=== PATIENT | male | born 1980 | race African-American/Black ===

== ENCOUNTER 2016-10-02 20:51 | Emergency (ER) | payer OTHER ==
[~2016-10-02] VITALS: Ht 182.9 cm; Wt 86.7 kg
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
--- OUTSIDE RECORDS SUMMARY | 2016-10-02 20:55 | XMS REPORT | Referral Summary ---
Author Author [facility] Organization [facility] Address Unknown Phone Unavailable Care Team Providers Care Upholsterer Helper Name Role Phone No PCP, Pt States Primary Care Physician [phone] Encounter VC Date(s): 05/26/15 - 05/26/15 [facility] [address] [place], [place] [address] Discharge Diagnosis: Anxiety Discharge Diagnosis: Medical non-compliance Discharge Disposition: 01-Home or Self Care Attending Physician: Neil Hutchins JR, MD Admitting Physician: Neil Hutchins JR, MD Vital Signs Most recent to 1 oldest [Reference Range]: Temperature Oral 36.6 degC [35.8-37.3 degC] (05/26/15 5:30 PM) Peripheral Pulse 73 bpm Rate [60-100 bpm] (05/26/15 5:30 PM) Respiratory Rate 16 br/min [14-20 br/min] (05/26/15 5:30 PM) Blood Pressure 107/71 mmHg [90-140/60-90 mmHg] (05/26/15 5:30 PM) SpO2 98 % (05/26/15 5:30 PM) Problem List Condition Effective Dates Status Health Status Informant Acute Active pain(Confirmed) Kidney failure, Active patient acute(Confirmed) At risk for Active injury(Confirmed)1 At risk of pressure Active sore(Confirmed) Manic Active patient depression(Confirmed ) Depression(Confirmed Active ) Knowledge Active deficit(Confirmed)2 Tissue perfusion Active alteration(Confirmed )3 Tobacco Active patient user(Confirmed) 1Problem added automatically by system based on initiation of Risk for Injury Plan of Care 2Problem added automatically by system based on initiation of Knowledge Deficit Plan of Care 3Problem added automatically by system based on initiation of Tissue Perfusion Cerebral Plan of Care Allergies, Adverse Reactions, Alerts Substance Reaction Severity Status acetaminophen1 Hives Medium Active 1facial redness, hives Medications Ativan 0 Refill(s) Start Date: 05/25/15 Status: Ordered LaMICtal 25 mg, Oral, Bedtime (once a day), 0 Refill(s) Start Date: 01/10/14 Status: Ordered lisinopril Oral, Daily, 0 Refill(s) Start Date: 07/27/14 Status: Ordered Remeron 7.5 mg, Oral, Bedtime (once a day), 0 Refill(s) Start Date: 01/10/14 Status: Ordered Results No data available for this section Immunizations Vaccine Date Refusal Reason pneumococcal 23-polyvalent vaccine 01/12/14 Procedures No data available for this section Social History Social History Type Response Smoking Status Current every day smoker; Type: E-Cigarette; Tobacco use per day: Pack Assessment and Plan No data available for this section
--- OUTSIDE RECORDS SUMMARY | 2016-10-02 20:55 | XMS REPORT | Continuity Of Care Document ---
Author [facility] Address [address] [place] [address] Phone Care Team Providers Care Computer Language Coder Name Role Phone UNASSIGNED, PHYSICIAN Unavailable Unavailable SAVAGE JACINTO, ADELAIDE AT Results Results No results recorded. Allergies and Adverse Reactions Allergies and Adverse Reactions Patient Unit Number: [id number] Agent Type Reaction Severity Status ACETAMINOPHEN Drug Allergy Unknown Unknown Active Problem List Problem List Visit/Account #[id number] (August 23, 2016 6:02pm - August 23, 2016 7: 10pm) Acute Problems: Code/Condition Comments Documented Start Date Documented Resolved Date Code (s) Low back pain ICD10: M54.5 Low back pain ICD9: 724.2 Low back pain SNOMED: 886296596 Low back pain Bronchitis ICD10: J40 Bronchitis ICD9: 490 Bronchitis SNOMED: 94807905 Bronchitis Anxiety ICD10: F41.9 Anxiety ICD9: 300.00 Anxiety SNOMED: 05142278 Anxiety High blood pressure ICD10: I10 Hypertension ICD9: 401.9 Hypertension SNOMED: 45638772 Hypertension Plan of Care Plan Of Care Visit/Account #[id number] (August 23, 2016 6:02pm - August 23, 2016 7: 10pm) Patient Instructions Return if worse or any concern. Establish primary care with Dr. Charles within the next 1 to 2 weeks for follow-up. Vital Signs Vital Signs Visit/Account #[id number] (August 23, 2016 6:02pm - August 23, 2016 7: 10pm) Sign First Result Last Result Code(s) Body Mass Index Body Mass Index (BMI): 27.0 kg/m2 On August 23, 2016 6:03pm 28226-3 BMI (body mass index) Body Mass Index as a Calculated Value 27.3 kg/m2 On August 23, 2016 6:03pm 93666-1 BMI (body mass index) Body Surface Area as a Calculated Value 2.14 m2 On August 23, 2016 6:03pm 3140-1 BSA (body surface area) Height (Feet/Inches) 6 [ft_us] On August 23, 2016 6:03pm Temperature in Fahrenheit Temperature (Fahrenheit): 98.1 [degF] On August 23, 2016 6:03pm Temperature (Fahrenheit): 98.8 [degF] On August 23, 2016 7:12pm 8310-5 Body Temperature Weight in Kilograms Weight (Kilograms): 91.36 kg On August 23, 2016 6:03pm 3141-9 Weight Measured 94402-2 Body weight measured in kilograms Functional Status Functional and Cognitive Status No Functional Status Data Medications Inpatient/Ordered Medications - Medications administered during hospital visit Visit/Account #[id number] (August 23, 2016 6:02pm - August 23, 2016 7: 10pm) Medication Route Sig/Schedule Precondition/Indication Comments/Instructions Codes HALDOL(HALOPERIDOL) 5 MG TAB Dose: 5 MG ORAL NOW Label Comments: MAY INCREASE FALL RISK Haloperidol 5 MG Oral Tablet (RxNorm): 637719 HALDOL (HALOPERIDOL) NDC: 50008260112 TORADOL(KETOROLAC TROMETHAMINE) 10 MG TAB Dose: 20 MG ORAL NOW Label Comments: TAKE WITH FOOD OR MILK. DO NOT EXCEED 5 DAYS OF THERAPY Ketorolac Tromethamine 10 MG Oral Tablet (RxNorm): 590303 TORADOL (KETOROLAC TROMETHAMINE) NDC: 47131645226 History Of Encounters Encounters Visit/Account #[id number] (August 23, 2016 6:02pm - August 23, 2016 7: 10pm) Account Status Physican Of Record Reason For Visit Visit Diagnosis Start Date/Time Stop Date/Time IRVING WAN MD ANXIETY Not Available Aug 23, 2016 6:02pm Aug 23, 2016 7:10pm History of Procedures Procedure List No procedures recorded. Discharge Instructions Discharge Instructions Visit/Account #[id number] (August 23, 2016 6:02pm - August 23, 2016 7: 10pm) DISCHARGE INSTRUCTIONS Physician Documentation Social History Social History No Social History Data. Immunizations Immunizations Patient Unit Number: [id number] Immunizations No immunizations recorded.
--- OUTSIDE RECORDS SUMMARY | 2016-10-02 20:55 | XMS REPORT | Continuity Of Care Document ---
Author Author [facility] Organization [facility] Address [address] [place] [address] Phone Care Team Providers Care Plant Buyer Name Role Phone UNASSIGNED, PHYSICIAN Unavailable Unavailable Laura NANCE DO AT Results Results No results recorded. Allergies and Adverse Reactions Allergies and Adverse Reactions Patient Unit Number: [id number] Agent Type Reaction Severity Status ACETAMINOPHEN Drug Allergy Unknown Unknown Active Problem List Problem List Visit/Account #[id number] (August 22, 2016 8:06am - August 22, 2016 10: 14am) Acute Problems: Code/Condition Comments Documented Start Date Documented Resolved Date Code (s) Medication side effects ICD10: T88.7XXA Adverse effect of drug ICD9: 995.20 Adverse effect of drug SNOMED: 85379219 Adverse effect of drug Anxiety attack ICD10: F41.0 Anxiety attack ICD9: 300.01 Anxiety attack SNOMED: 364078257 Anxiety attack Plan of Care Plan Of Care Visit/Account #[id number] (August 22, 2016 8:06am - August 22, 2016 10: 14am) Patient Instructions Continue previous medications as prescribed, return to the emergency department for any concerns. Vital Signs Vital Signs Visit/Account #[id number] (August 22, 2016 8:06am - August 22, 2016 10: 14am) Sign First Result Last Result Code(s) Body Mass Index Body Mass Index (BMI): 26.0 kg/m2 On August 22, 2016 8:05am 33135-7 BMI (body mass index) Body Mass Index as a Calculated Value 26.8 kg/m2 On August 22, 2016 8:05am 88956-5 BMI (body mass index) Body Surface Area as a Calculated Value 2.17 m2 On August 22, 2016 8:05am 3140-1 BSA (body surface area) Height (Feet/Inches) 6 [ft_us] 1 [in_us] On August 22, 2016 8:05am Temperature in Fahrenheit Temperature (Fahrenheit): 97.7 [degF] On August 22, 2016 8:05am Temperature (Fahrenheit): 97.8 [degF] On August 22, 2016 9:57am 8310-5 Body Temperature Weight in Kilograms Weight (Kilograms): 92.27 kg On August 22, 2016 8:05am 3141-9 Weight Measured 87484-3 Body weight measured in kilograms Functional Status Functional and Cognitive Status No Functional Status Data Medications Inpatient/Ordered Medications - Medications administered during hospital visit Visit/Account #[id number] (August 22, 2016 8:06am - August 22, 2016 10: 14am) Medication Route Sig/Schedule Precondition/Indication Comments/Instructions Codes IV Medication Carriers: NORMAL SALINE(SODIUM CHLORIDE) 1000 ML INJECTION Dose: 1000 ML INTRAVEN .Q1H (Rate: 1000 MLS/HR Duration: 1 HR) Carriers: 1000 ML Sodium Chloride 9 MG/ML Injection (RxNorm): 0577598 NORMAL SALINE (SODIUM CHLORIDE) NDC: 70417124547 VALIUM INJ(DiazePAM) 10 MG/2 ML INJECTION Dose: 1 ML INTRAVEN ONE TIME ORDER Label Comments: MAY INCREASE FALL RISK 2 ML Diazepam 5 MG/ML Cartridge (RxNorm): 5635658 VALIUM INJ (DiazePAM) NDC: 53044743407 History Of Encounters Encounters Visit/Account #[id number] (August 22, 2016 8:06am - August 22, 2016 10: 14am) Account Status Physican Of Record Reason For Visit Visit Diagnosis Start Date/Time Stop Date/Time IRVING NANCE DO LIGHT HEADED R42: DIZZINESS AND GIDDINESS ICD10 Aug 22, 2016 8:06am Aug 22, 2016 10:14am History of Procedures Procedure List No procedures recorded. Discharge Instructions Discharge Instructions Visit/Account #[id number] (August 22, 2016 8:06am - August 22, 2016 10: 14am) DISCHARGE INSTRUCTIONS Physician Documentation Social History Social History No Social History Data. Immunizations Immunizations Patient Unit Number: [id number] Immunizations No immunizations recorded.
--- OUTSIDE RECORDS SUMMARY | 2016-10-02 20:56 | XMS REPORT | Referral Summary ---
Author Organization Unknown Address Unknown Phone Unavailable Care Team Providers Care Federal Air Marshal Name Role Phone No PCP, [facility] Primary Care Physician [phone] Encounter VC Date(s): 07/25/14 - 07/25/14 [facility] [address] [place] [address] Discharge Diagnosis: Paranoia Discharge Diagnosis: Drug abuse Discharge Disposition: Inpatient Rehab Facility Attending Physician: Sunday Kahn MD Admitting Physician: Sunday Kahn MD Vital Signs Most recent to 1 oldest [Reference Range]: Temperature Oral 36.3 degC [35.8-37.3 degC] (07/25/14 9:16 PM) Peripheral Pulse 111 bpm Rate [60-100 bpm] *HI* (07/25/14 9:16 PM) Heart Rate Monitored 107 bpm [60-100 bpm] *HI* (07/25/14 11:25 PM) Respiratory Rate 16 br/min [14-20 br/min] (07/25/14 11:25 PM) Blood Pressure 178/106 mmHg [90-140/60-90 mmHg] *HI* (07/25/14 11:25 PM) Most recent to 1 oldest [Reference Range]: SpO2 96 % (07/25/14 11:25 PM) Problem List Condition Effective Dates Status [...] Reactions, Alerts Substance Reaction Severity Status acetaminophen1 Active 1facial redness, hives Medications LaMICtal 25 mg, Oral, Bedtime (once a day), 0 Refill(s) Start Date: 01/10/14 Status: Ordered Remeron 7.5 mg, Oral, Bedtime (once a day), 0 Refill(s) Start Date: 01/10/14 Status: Ordered Results Chemistry Most recent to 1 oldest [Reference Range]: Sodium Venous 140 mEq/L [136-144 mEq/L] (07/25/14 10:10 PM) Potassium Venous 3.2 mEq/L 1 [3.6-5.1 mEq/L] *LOW* (07/25/14 10:10 PM) Calcium Ionized 1.15 mmol/L Venous [1.19-1.41 *LOW* mmol/L] (07/25/14 10:10 PM) Total CO2 Venous 24 mEq/L [25-29 mEq/L] *LOW* (07/25/14 10:10 PM) HGB Venous NPT 16.7 gm/dL [14.0-18.0 gm/dL] (07/25/14 10:10 PM) HCT Venous 49.0 % [42.0-52.0 %] (07/25/14 10:10 PM) Glucose Venous 104 mg/dL [70-100 mg/dL] *HI* (07/25/14 10:10 PM) BUN Venous [4-20] 10 (07/25/14 10:10 PM) Creatinine Venous 1.1 mg/dL [0.7-1.2 mg/dL] (07/25/14 10:10 PM) Venous CL [99-109 101 mEq/L mEq/L] (07/25/14 10:10 PM) Anion Gap, [place] 15 [3-20] (07/25/14 10:10 PM) 1Result Comment: This test was performed on a whole blood specimen. The presence or absence of hemolysis cannot be assessed. Hemolysis can falsely elevate potassium levels. Normals are for venous specimens only. Immunizations Vaccine Date Refusal Reason pneumococcal 23-polyvalent vaccine 01/12/14 Procedures No data available for this section Social History Social History Type Response Smoking Status Current every day smoker; Type: Cigarettes; Tobacco use per day: Pack Assessment and Plan No data available for this section
--- OUTSIDE RECORDS SUMMARY | 2016-10-02 20:56 | XMS REPORT | Referral Summary ---
Author Organization Unknown Address Unknown Phone Unavailable Care Team Providers Care Donkey Engine Firer/Fireman Name Role Phone No PCP, [facility] Primary Care Physician [phone] Encounter VC Date(s): 08/05/14 - 08/05/14 [facility] [address] [place] [address] Discharge Diagnosis: Dehydration Final: Dehydration Final: OTHER, MIXED, OR UNSPECIFIED DRUG ABUSE, UNSPECIFIED USE Final: TOBACCO USE DISORDER Discharge Diagnosis: Drug abuse Discharge Disposition: Home or Self Care Attending Physician: Lilli Chavez MD Admitting Physician: Lilli Chavez MD Vital Signs Most recent to 1 oldest [Reference Range]: Temperature Oral 36.6 degC [35.8-37.3 degC] (08/05/14 1:45 AM) Peripheral Pulse 124 bpm Rate [60-100 bpm] *HI* (08/05/14 7:52 AM) Heart Rate Monitored 123 bpm [60-100 bpm] *HI* (08/05/14 7:31 AM) Respiratory Rate 21 br/min [14-20 br/min] *HI* (08/05/14 7:52 AM) Blood Pressure 152/111 mmHg [90-140/60-90 mmHg] *HI* (08/05/14 7:52 AM) Mean Arterial 125 mmHg Pressure, Cuff (08/05/14 7:31 AM) Most recent to 1 oldest [Reference Range]: SpO2 96 % (08/05/14 7:52 AM) Problem List Condition Effective Dates Status Health [...] Refill(s) Start Date: 01/10/14 Status: Ordered Results Hematology Most recent to 1 oldest [Reference Range]: WBC [4.8-10.8 K/uL] 10.8 K/uL (08/05/14 2:36 AM) RBC [4.60-6.20 M/uL] 5.66 M/uL (08/05/14 2:36 AM) Hgb [14.0-18.0 16.7 gm/dL gm/dL] (08/05/14 2:36 AM) Hct [42.0-52.0 %] 49.0 % (08/05/14 2:36 AM) MCV [82.0-99.0 fL] 86.6 fL (08/05/14 2:36 AM) MCH [27.0-32.0 pg] 29.5 pg (08/05/14 2:36 AM) MCHC [32.0-36.0 34.1 gm/dL gm/dL] (08/05/14 2:36 AM) RDW [11.5-14.5 %] 14.0 % (08/05/14 2:36 AM) Platelet [150-400 370 K/uL K/uL] (08/05/14 2:36 AM) MPV [9.4-12.3 fL] 9.2 fL *LOW* (08/05/14 2:36 AM) Immature 0.3 % Granulocytes (08/05/14 2:36 AM) [0.0-1.0 %] Neutrophils [51-75 77 % %] *HI* (08/05/14 2:36 AM) Lymphocytes [20-46 17 % %] *LOW* (08/05/14 2:36 AM) Monocytes [4-11 %] 5 % (08/05/14 2:36 AM) Eosinophils [0-4 %] 0 % (08/05/14 2:36 AM) Basophils [0-2 %] 0 % (08/05/14 2:36 AM) Neutro Absolute 8.34 THOUS [1.90-7.00 THOUS] *HI* (08/05/14 2:36 AM) Lymph Absolute 1.86 THOUS [0.80-3.30 THOUS] (08/05/14 2:36 AM) [place] Absolute 0.54 THOUS [0.30-1.00 THOUS] (08/05/14 2:36 AM) Eos Absolute 0.02 THOUS [0.00-0.50 THOUS] (08/05/14 2:36 AM) Baso Absolute 0.03 THOUS [0.00-0.20 THOUS] (08/05/14 2:36 AM) Nucleated RBC 0.0 /100 WBC Automated [0 /100 (08/05/14 2:36 AM) WBC] Differential Scanned Slide (08/05/14 2:36 AM) Chemistry Most recent to 1 oldest [Reference Range]: Sodium Lvl [136-144 136 mEq/L mEq/L] (08/05/14 2:36 AM) Potassium Lvl 4.5 mEq/L [3.6-5.1 mEq/L] (08/05/14 2:36 AM) Chloride [99-109 104 mEq/L mEq/L] (08/05/14 2:36 AM) CO2 [22-32 mEq/L] 25 mEq/L (08/05/14 2:36 AM) AGAP [3-20] 7 (08/05/14 2:36 AM) BUN [4-20 mg/dL] 14 mg/dL (08/05/14 2:36 AM) Glucose Lvl [70-100 112 mg/dL mg/dL] *HI* (08/05/14 2:36 AM) Creatinine Lvl 1.13 mg/dL [0.64-1.27 mg/dL] (08/05/14 2:36 AM) eGFR [>60] >60 2 (08/05/14 2:36 AM) Calcium Lvl 9.9 mg/dL [8.6-10.0 mg/dL] (08/05/14 2:36 AM) Albumin Lvl [3.5-4.8 3.9 gm/dL gm/dL] (08/05/14 2:36 AM) Total Protein 8.1 gm/dL [6.1-7.9 gm/dL] *HI* (08/05/14 2:36 AM) Globulin [1.9-4.3 4.2 gm/dL gm/dL] (08/05/14 2:36 AM) ALT [17-63 unit/L] 53 unit/L (08/05/14 2:36 AM) AST [15-41 unit/L] 38 unit/L (08/05/14 2:36 AM) Alk Phos [26-104 121 unit/L unit/L] *HI* (08/05/14 2:36 AM) Bili Total [0.2-1.2 0.6 mg/dL 1 mg/dL] (08/05/14 2:36 AM) Total CK [49-397 98 unit/L unit/L] (08/05/14 2:36 AM) TSH with Reflex Free 1.03 T4 [0.35-5.50] (08/05/14 2:36 AM) 1Result Comment: Naproxen, specifically the metabolite O-desmethylnaproxen, may cause spurious elevation in Total Bilirubin levels. 2Result Comment: Multiply eGFR results by 1.21 for race. Toxicology Most recent to 1 oldest [Reference Range]: Ethanol Lvl Not Detected (08/05/14 2:36 AM) U Amphetamine Scrn Positive *ABN* (08/05/14 4:19 AM) U Cocaine Scrn Negative (08/05/14 4:19 AM) U Cannab Scrn Negative (08/05/14 4:19 AM) U Opiate Scrn Negative (08/05/14 4:19 AM) U PCP Scrn Negative (08/05/14 4:19 AM) U Benzodiazepine Negative Scrn (08/05/14 4:19 AM) U Barbiturate Scrn Negative (08/05/14 4:19 AM) Methadone Lvl Negative (08/05/14 4:19 AM) Tricyclics Not Detected 3 (08/05/14 4:19 AM) 3Result Comment: Cut-off concentrations: Amphetamines: 1000 ng/mL Cocaine: 300 ng/mL Cannabinoid: 50 ng/mL Opiate: 300 ng/mL Phencyclidine (PCP): 25 ng/mL Benzodiazepine: 200 ng/mL Barbiturate: 200 ng/mL Methadone: 300 ng/mL Tricyclic: 300 ng/mL The urine drug screen assays are qualitative screens. A more specific GC/MS method must be performed to obtain a confirmed analytical result. Unconfirmed screening results must not be used for non-medical purposes(e.g. employment or legal testing) Urinalysis Most recent to 1 oldest [Reference Range]: UA Color Lt Yellow (08/05/14 4:19 AM) UA Appear Clear (08/05/14 4:19 AM) UA pH [5.0-8.0] 6.0 (08/05/14 4:19 AM) UA Leuk Est Negative [Negative] (08/05/14 4:19 AM) UA Nitrite Negative [Negative] (08/05/14 4:19 AM) UA Protein Negative [Negative] (08/05/14 4:19 AM) UA Glucose Negative [Negative] (08/05/14 4:19 AM) UA Ketones Negative [Negative] (08/05/14 4:19 AM) UA Urobilinogen Negative [<1.0] (08/05/14 4:19 AM) UA Bili [Negative] Negative (08/05/14 4:19 AM) UA Blood [Negative] Negative (08/05/14 4:19 AM) UA Spec Grav 1.011 [1.003-1.030] (08/05/14 4:19 AM) Type Clean Catch (08/05/14 4:19 AM) Immunizations Vaccine Date Refusal Reason pneumococcal 23-polyvalent vaccine 01/12/14 Procedures No data available for this section Social History Social History Type Response Smoking Status Current every day smoker; Type: Cigarettes; Tobacco use per day: Pack Assessment and Plan No data available for this section
--- OUTSIDE RECORDS SUMMARY | 2016-10-02 20:56 | XMS REPORT | Continuity Of Care Document ---
Author Author [facility] Organization [facility] Address [address] [place] [address] Phone Care Team Providers Care Dray Driver Name Role Phone MARIANA JACINTO M AT Results Results No results recorded. Allergies and Adverse Reactions Allergies and Adverse Reactions Patient Unit Number: [id number] Agent Type Reaction Severity Status ACETAMINOPHEN Drug Allergy Unknown Unknown Active Problem List Problem List Visit/Account #[id number] (August 16, 2016 9:28pm - August 16, 2016 11:13pm ) Acute Problems: Code/Condition Comments Documented Start Date Documented Resolved Date Code (s) Low back pain ICD10: M54.5 Low back pain ICD9: 724.2 Low back pain SNOMED: 105310004 Low back pain Headache ICD10: R51 Headache ICD9: 784.0 Headache SNOMED: 97835403 Headache Plan of Care Plan Of Care Visit/Account #[id number] (August 16, 2016 9:28pm - August 16, 2016 11:13pm ) Patient Instructions Please return to the emergency room if you are not getting better, you are getting worse, or if you have any concerns. Vital Signs Vital Signs Visit/Account #[id number] (August 16, 2016 9:28pm - August 16, 2016 11:13pm ) Sign First Result Last Result Code(s) Body Mass Index Body Mass Index (BMI): 27.0 kg/m2 On August 16, 2016 9:27pm 99724-3 BMI (body mass index) Body Mass Index as a Calculated Value 27.3 kg/m2 On August 16, 2016 9:27pm 32732-3 BMI (body mass index) Body Surface Area as a Calculated Value 2.14 m2 On August 16, 2016 9:27pm 3140-1 BSA (body surface area) Height (Feet/Inches) 6 [ft_us] On August 16, 2016 9:27pm Temperature in Fahrenheit Temperature (Fahrenheit): 98.7 [degF] On August 16, 2016 9:27pm Temperature (Fahrenheit): 99.8 [degF] On August 16, 2016 11:13pm 8310-5 Body Temperature Weight in Kilograms Weight (Kilograms): 91.3 kg On August 16, 2016 9:27pm 3141-9 Weight Measured 05563-7 Body weight measured in kilograms Functional Status Functional and Cognitive Status No Functional Status Data Medications Inpatient/Ordered Medications - Medications administered during hospital visit Visit/Account #[id number] (August 16, 2016 9:28pm - August 16, 2016 11:13pm ) Medication Route Sig/Schedule Precondition/Indication Comments/Instructions Codes BENADRYL INJ(DiphenhydrAMINE HCL) 50 MG/ML INJECTION Dose: 1 ML INTRAMUSC NOW Diphenhydramine Hydrochloride 50 MG/ML Injectable Solution (RxNorm): 1951483 BENADRYL INJ (DiphenhydrAMINE HCL) NDC: 90519207864 TORADOL INJ(KETOROLAC TROMETHAMINE) 60 MG/2 ML VIAL Dose: 1 ML INTRAMUSC NOW 2 ML Ketorolac Tromethamine 30 MG/ML Injection (RxNorm): 4023760 TORADOL INJ (KETOROLAC TROMETHAMINE) NDC: 14095051363 PHENERGAN INJ(PROMETHAZINE HCL) 25 MG/ML INJECTION Dose: 1 ML INTRAMUSC NOW 1 ML Promethazine Hydrochloride 25 MG/ML Injection (RxNorm): 616874 PHENERGAN INJ (PROMETHAZINE HCL) NDC: 79429163168 VALIUM INJ(DiazePAM) 10 MG/2 ML INJECTION Dose: 1 ML INTRAMUSC NOW Label Comments: MAY INCREASE FALL RISK 2 ML Diazepam 5 MG/ML Cartridge (RxNorm): 7277309 VALIUM INJ (DiazePAM) NDC: 19411536672 History Of Encounters Encounters Visit/Account #[id number] (August 16, 2016 9:28pm - August 16, 2016 11:13pm ) Account Status Physican Of Record Reason For Visit Visit Diagnosis Start Date/Time Stop Date/Time IRVING PEÑA MD MIGRAINE G43.909: MIGRAINE, UNSP, NOT INTRACTABLE, WITHOUT STATUS MIGRAINOSUS ICD10 Aug 16, 2016 9:28pm Aug 16, 2016 11:13pm History of Procedures Procedure List No procedures recorded. Discharge Instructions Discharge Instructions Visit/Account #[id number] (August 16, 2016 9:28pm - August 16, 2016 11:13pm ) DISCHARGE INSTRUCTIONS Physician Documentation Social History Social History No Social History Data. Immunizations Immunizations Patient Unit Number: [id number] Immunizations No immunizations recorded.
--- OUTSIDE RECORDS SUMMARY | 2016-10-02 20:57 | XMS REPORT | Referral Summary ---
Author Author [facility] Organization [facility] Address Unknown Phone Unavailable Care Team Providers Care Briar Wood Sorter Name Role Phone No PCP, Pt States Primary Care Physician [phone] Encounter VC Date(s): 12/17/15 - 12/17/15 [facility] [address] [place] [address] Discharge Diagnosis: Paranoia Discharge Diagnosis: Encounter for medication refill Discharge Diagnosis: Tachycardia Discharge Disposition: [facility] Attending Physician: Young Jones MD Admitting Physician: Young Jones MD Vital Signs Most recent to 1 oldest [Reference Range]: Temperature Oral 36.9 degC [35.8-37.3 degC] (12/17/15 12:29 AM) Peripheral Pulse 140 bpm Rate [60-100 bpm] *HI* (12/17/15 12:29 AM) Respiratory Rate 22 br/min [14-20 br/min] *HI* (12/17/15 12:29 AM) Blood Pressure 137/81 mmHg [90-140/60-90 mmHg] (12/17/15 12:29 AM) SpO2 95 % (12/17/15 12:29 AM) Problem List Condition Effective Dates Status [...] Hives Medium Active 1facial redness, hives Medications ALPRAZolam Oral, 0 Refill(s) Start Date: 12/07/15 Status: Ordered LaMICtal 25 mg, Oral, Bedtime [...]
--- OUTSIDE RECORDS SUMMARY | 2016-10-02 20:57 | XMS REPORT | Referral Summary ---
Author Author [facility] Organization [facility] Address Unknown Phone Unavailable Care Team Providers Care Needle Board Repairer Name Role Phone No PCP, Pt States Primary Care Physician [phone] Encounter VC Date(s): 12/07/15 - 12/07/15 [facility] [address] [place] [address] Discharge Diagnosis: Cervical strain Discharge Disposition: 01-Home or Self Care Attending Physician: Young Jones MD Admitting Physician: Young Jones MD Vital Signs Most recent to 1 oldest [Reference Range]: Temperature Oral 36.9 degC [35.8-37.3 degC] (12/07/15 8:18 PM) Peripheral Pulse 97 bpm Rate [60-100 bpm] (12/07/15 9:33 PM) Respiratory Rate 20 br/min [14-20 br/min] (12/07/15 9:33 PM) Blood Pressure 134/85 mmHg [90-140/60-90 mmHg] (12/07/15 9:33 PM) SpO2 97 % (12/07/15 9:33 PM) Problem List Condition Effective Dates Status [...] 0 Refill(s) Start Date: 12/07/15 Status: Ordered cyclobenzaprine 10 mg oral tablet 10 mg 1 tabs, Oral, TID, as needed for spasm, X 5 days, # 15 tabs, 0 Refill(s) Start Date: 12/07/15 Stop Date: 12/12/15 Status: Ordered LaMICtal 25 mg, Oral, Bedtime (once a day), 0 Refill(s) Start Date: 01/10/14 Status: Ordered Ultram 50 mg oral tablet 50 mg 1 tabs, Oral, q6hr, as needed for pain, X 5 days, # 20 tabs, 0 Refill(s) Start Date: 12/07/15 Stop Date: 12/12/15 Status: Ordered Results No data available for this section Immunizations Vaccine Date Refusal Reason pneumococcal 23-polyvalent vaccine 01/12/14 Procedures No data available for this section Social History Social History Type Response Smoking Status Current every day smoker; Type: E-Cigarette; Tobacco use per day: Pack Assessment and Plan No data available for this section
--- OUTSIDE RECORDS SUMMARY | 2016-10-02 20:57 | XMS REPORT | Referral Summary ---
Author Organization Unknown Address Unknown Phone Unavailable Care Team Providers Care Admitted Attorneys Name Role Phone No PCP, States Primary Care Physician [phone] Encounter [facility] [id number] Date(s): 08/05/14 - 08/06/14 [facility] [address] [place] [address] Discharge Diagnosis: Drug abuse Discharge Diagnosis: Anxiety Final: Delusional disorder Final: ANXIETY STATE, UNSPECIFIED Final: OTHER, MIXED, OR UNSPECIFIED DRUG ABUSE, UNSPECIFIED USE Final: TOBACCO USE DISORDER Discharge Diagnosis: Paranoia Discharge Disposition: Home or Self Care Attending Physician: Juan F Navarro MD Admitting Physician: Juan F Navarro MD Referring Physician: Self Referred, X Vital Signs Most recent to 1 oldest [Reference Range]: Peripheral Pulse 105 bpm Rate [60-100 bpm] *HI* (08/06/14 1:59 AM) Respiratory Rate 20 br/min [14-20 br/min] (08/06/14 1:59 AM) Blood Pressure 145/95 mmHg [90-140/60-90 mmHg] *HI* (08/06/14 1:59 AM) Most recent to 1 oldest [Reference Range]: SpO2 99 % (08/06/14 1:59 AM) Problem List Condition Effective Dates Status [...]
--- OUTSIDE RECORDS SUMMARY | 2016-10-02 20:57 | XMS REPORT | Referral Summary ---
Author Organization Unknown Address Unknown Phone Unavailable Care Team Providers Care Electromyographic Technician Name Role Phone No PCP, States Primary Care Physician [phone] Encounter VC Date(s): 07/27/14 - 07/27/14 [facility] [address] [place] [id number] Discharge Diagnosis: Anxiety Discharge Diagnosis: Suicidal ideation Discharge Diagnosis: Depression (emotion) Discharge Disposition: Home or Self Care Attending Physician: Ramirez Singh MD Admitting Physician: Ramirez Singh MD Vital Signs Most recent to 1 oldest [Reference Range]: Temperature Oral 36.4 degC [35.8-37.3 degC] (07/27/14 5:02 AM) Peripheral Pulse 125 bpm Rate [60-100 bpm] *HI* (07/27/14 5:02 AM) Respiratory Rate 18 br/min [14-20 br/min] (07/27/14 5:02 AM) Blood Pressure 135/103 mmHg [90-140/60-90 mmHg] (07/27/14 5:02 AM) Most recent to 1 oldest [Reference Range]: SpO2 95 % (07/27/14 5:02 AM) Problem List Condition Effective Dates Status [...]
--- OUTSIDE RECORDS SUMMARY | 2016-10-02 20:57 | XMS REPORT | Referral Summary ---
Author Author [facility] Organization [facility] Address Unknown Phone Unavailable Care Team Providers Care River Driver Name Role Phone No PCP, Pt States Primary Care Physician [phone] Encounter VC Date(s): 02/20/16 - 02/20/16 [facility] [address] [place] [address]- [place] Discharge Diagnosis: Back pain Discharge Disposition: 01-Home or Self Care Attending Physician: Bucky Espinosa MD Admitting Physician: Bucky Espinosa MD Vital Signs Most recent to 1 oldest [Reference Range]: Temperature Oral 36.5 degC [35.8-37.3 degC] (02/20/16 9:16 AM) Peripheral Pulse 73 bpm Rate [60-100 bpm] (02/20/16 9:16 AM) Respiratory Rate 12 br/min [14-20 br/min] *LOW* (02/20/16 9:16 AM) Blood Pressure 134/87 mmHg [90-140/60-90 mmHg] (02/20/16 9:16 AM) SpO2 97 % (02/20/16 9:16 AM) Problem List Condition Effective Dates Status [...] 0 Refill(s) Start Date: 01/10/14 Status: Ordered Naprosyn 375 mg oral tablet 375 mg 1 tabs, Oral, BID, as needed for pain, # 20 tabs, 0 Refill(s) Start Date: 02/20/16 Status: Ordered Ultram 50 mg oral tablet 50 mg 1 tabs, Oral, q12hr, as needed for pain, # 20 tabs, 0 Refill(s) Start Date: 02/21/16 Stop Date: 03/03/16 Status: Ordered Results No data available for this section Immunizations Vaccine Date Refusal Reason pneumococcal 23-polyvalent vaccine 01/12/14 Procedures No data available for this section Social History Social History Type Response Smoking Status Current every day smoker; Type: E-Cigarette; Tobacco use per day: Pack Assessment and Plan No data available for this section
--- OUTSIDE RECORDS SUMMARY | 2016-10-02 20:57 | XMS REPORT | Referral Summary ---
Author Author [facility] Organization [facility] Address Unknown Phone Unavailable Care Team Providers Care Car Wash Attendant Automatic Name Role Phone No PCP, Pt States Primary Care Physician [phone] Encounter VC Date(s): 02/21/16 - 02/21/[address] [facility] [address] [place], [place] [address] Discharge Diagnosis: Back pain Discharge Diagnosis: Chronic neck pain Discharge Diagnosis: Chronic back pain Discharge Disposition: 01-Home or Self Care Attending Physician: Kimberlee Jaeger DO Admitting Physician: Kimberlee Jaeger DO Vital Signs Most recent to 1 oldest [Reference Range]: Temperature Oral 37 degC [35.8-37.3 degC] (02/21/16 12:38 AM) Peripheral Pulse 70 bpm Rate [60-100 bpm] (02/21/16 2:30 AM) Respiratory Rate 16 br/min [14-20 br/min] (02/21/16 2:30 AM) Blood Pressure 125/81 mmHg [90-140/60-90 mmHg] (02/21/16 2:30 AM) SpO2 99 % (02/21/16 2:30 AM) Problem List Condition Effective Dates Status [...]
--- OUTSIDE RECORDS SUMMARY | 2016-10-02 20:57 | XMS REPORT | Continuity Of Care Document ---
Author Author [facility] Organization [facility] Address [address] [place] [address] Phone Care Team Providers Care Registered Dietetic Technician Name Role Phone UNASSIGNED, PHYSICIAN Unavailable Unavailable Laura NANCE DO AT Results Results No results recorded. Allergies and Adverse Reactions Allergies and Adverse Reactions Patient Unit Number: [id number] Agent Type Reaction Severity Status ACETAMINOPHEN Drug Allergy Unknown Unknown Active Problem List Problem List Visit/Account #[id number] (August 22, 2016 5:32am - August 22, 2016 6: 42am) Acute Problems: Code/Condition Comments Documented Start Date Documented Resolved Date Code (s) Low back pain radiating to right leg ICD10: M54.5 Low back pain radiating to right lower extremity ICD9: 724.2 Low back pain radiating to right lower extremity SNOMED: 199717669 Low back pain radiating to right lower extremity Bronchitis ICD10: J40 Bronchitis ICD9: 490 Bronchitis SNOMED: 89765422 Bronchitis Plan of Care Plan Of Care Visit/Account #[id number] (August 22, 2016 5:32am - August 22, 2016 6: 42am) Patient Instructions Take the prednisone taper as prescribed. Take the azithromycin daily for 5 days. Use albuterol 2 puffs every 6 hours for 2 days, then as needed for wheezing. Take the Flexeril every 8 hours as needed for back spasms. Followup with your primary care physician, return to the emergency department for any concerns. Vital Signs Vital Signs Visit/Account #[id number] (August 22, 2016 5:32am - August 22, 2016 6: 42am) Sign First Result Last Result Code(s) Temperature in Fahrenheit Temperature (Fahrenheit): 98.0 [degF] On August 22, 2016 5:29am 8310-5 Body Temperature Weight in Kilograms Weight (Kilograms): 86.2 kg On August 22, 2016 5:29am 3141-9 Weight Measured 18421-6 Body weight measured in kilograms Functional Status Functional and Cognitive Status No Functional Status Data Medications Inpatient/Ordered Medications - Medications administered during hospital visit Visit/Account #[id number] (August 22, 2016 5:32am - August 22, 2016 6: 42am) Medication Route Sig/Schedule Precondition/Indication Comments/Instructions Codes VENTOLIN 0.5% NEB(ALBUTEROL SULF) 2.5 MG/0.5 ML INHALER Dose: 1 ML INHALED NOW Albuterol 1 MG/ML Inhalant Solution (RxNorm): 882824 VENTOLIN 0.5% NEB (ALBUTEROL SULF) NDC: 28418034489 ATROVENT 0.02% NEB(IPRATROPIUM BROMIDE) 0.5 MG/2.5 ML SOLUTION Dose: 2.5 ML INHALED NOW Ipratropium [place] 0.2 MG/ML Inhalant Solution (RxNorm): 448510 ATROVENT 0.02% NEB (IPRATROPIUM BROMIDE) NDC: 28370137774 SOLU-Medrol INJ(MethylPREDNISolone SOD SUCC) 125 MG/2 ML INJECTION Dose: 2 ML INTRAMUSC NOW Methylprednisolone 125 MG Injection [Solu-Medrol] (RxNorm): 1324381 SOLU-Medrol INJ (MethylPREDNISolone SOD SUCC) NDC: 77915254539 NORFLEX INJ(ORPHENADRINE CITRATE) 60 MG/2 ML INJECTION Dose: 2 ML INTRAMUSC NOW 2 ML Orphenadrine Citrate 30 MG/ML Injection (RxNorm): 819661 NORFLEX INJ (ORPHENADRINE CITRATE) NDC: 34981485322 Discharge Medications - Medications that patient should continue to take. Review with physician Visit/Account #[id number] (August 22, 2016 5:32am - August 22, 2016 6: 42am) Medication Route Sig/Schedule Precondition/Indication Comments/Instructions Codes Flexeril(CYCLOBENZAPRINE HCL) 10 MG TAB Dose: 1 TAB ORAL EVERY 8 HOURS Cyclobenzaprine hydrochloride 10 MG Oral Tablet (RxNorm): 757420 Flexeril (CYCLOBENZAPRINE HCL) NDC: 13524342172 Prednisone(PredniSONE) 20 MG TAB Dose: 60 MG ORAL DAILY Prednisone 20 MG Oral Tablet (RxNorm): 041637 Prednisone (PredniSONE) NDC: 00115648265 PROAIR HFA(ALBUTEROL SULF) 8.5 GM HFA.AER.AD Dose: 1 PUFF INHALED EVERY 6 HOURS WHEEZING 200 ACTUAT Albuterol 0.09 MG/ACTUAT Metered Dose Inhaler [ProAir] (RxNorm): 465580 PROAIR HFA (ALBUTEROL SULF) NDC: 43695113301 Zithromax (Z-Pack)(AZITHROMYCIN) 250 MG TAB Dose: 1 TAB ORAL DIRECTED Rx Instructions: TAKE 2 TABLETS TODAY THEN 1 TABLET DAILY ON DAYS 2-5. Azithromycin 250 MG Oral Tablet [Zithromax] (RxNorm): 386079 Zithromax (Z-Pack) (AZITHROMYCIN) NDC: 32262942621 History Of Encounters Encounters Visit/Account #[id number] (August 22, 2016 5:32am - August 22, 2016 6: 42am) Account Status Physican Of Record Reason For Visit Visit Diagnosis Start Date/Time Stop Date/Time IRVING NANCE, DO Back pain Not Available Aug 22, 2016 5:32am Aug 22, 2016 6:42am History of Procedures Procedure List No procedures recorded. Discharge Instructions Discharge Instructions Visit/Account #[id number] (August 22, 2016 5:32am - August 22, 2016 6: 42am) DISCHARGE INSTRUCTIONS Physician Documentation Social History Social History No Social History Data. Immunizations Immunizations Patient Unit Number: [id number] Immunizations No immunizations recorded.
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
--- OUTSIDE RECORDS SUMMARY | 2016-10-02 20:57 | XMS REPORT | Referral Summary ---
Author Organization Unknown Address Unknown Phone Unavailable Care Team Providers Care Parts Department Manager Name Role Phone No PCP, [facility] Primary Care Physician [phone] Encounter VC Date(s): 07/27/14 - 07/27/[address] [facility] [address] [place] [id number] Discharge Diagnosis: Depression Discharge Diagnosis: Bipolar disorder Discharge Disposition: Home or Self Care Attending Physician: Ramirez Singh MD Admitting Physician: Ramirez Singh MD Vital Signs Most recent to 1 oldest [Reference Range]: Temperature Oral 36.7 degC [35.8-37.3 degC] (07/27/14 3:21 AM) Peripheral Pulse 128 bpm Rate [60-100 bpm] *HI* (07/27/14 3:38 AM) Respiratory Rate 16 br/min [14-20 br/min] (07/27/14 3:38 AM) Systolic Blood 149 mmHg Pressure [90-140 *HI* mmHg] (07/27/14 3:38 AM) Diastolic Blood 98 mmHg Pressure [60-90 *HI* mmHg] (07/27/14 3:38 AM) Most recent to 1 oldest [Reference Range]: SpO2 96 % (07/27/14 3:38 AM) Problem List Condition Effective Dates Status [...]
--- OUTSIDE RECORDS SUMMARY | 2016-10-02 20:57 | XMS REPORT | Continuity Of Care Document ---
Author Author [facility] Organization [facility] Address [address] [place] [address] Phone Care Team Providers Care Director Paid Media Name Role Phone UNASSIGNED, PHYSICIAN Unavailable Unavailable REGINE JACINTO, M AT Results Lab Results Visit/Account #[id number] (August 24, 2016 7:15pm - August 24, 2016 8: 47pm) Test Result Date/Time 27689-8: COMPLETE BLOOD COUNT WITH DIFF WHITE BLOOD COUNT(4.0-11.0 10E3/UL) 6.2 10E3/UL August 24, 2016 7:40pm RED BLOOD COUNT(4.50-5.90 10E6/UL) 5.45 10E6/UL August 24, 2016 7:40pm HEMOGLOBIN(13.5-17.5 G/DL) 15.4 G/DL August 24, 2016 7:40pm HEMATOCRIT(41.0-53.0 %) 47.4 % August 24, 2016 7:40pm MEAN CORPUSCULAR VOLUME(82.0-100.0 FL) 87.0 FL August 24, 2016 7:40pm 67547-0: MEAN CORPUSCULAR HEMOGLOBIN(26.0-34.0 PG) 28.3 PG August 24, 2016 7:40pm MEAN CORPUSCULAR HGB CONC(31.5-36.5 G/DL) 32.5 G/DL August 24, 2016 7:40pm RED CELL DISTRIBUTION WIDTH(11.5-14.5 %) 13.5 % August 24, 2016 7:40pm 777-3: PLATELET COUNT(150-450 10E3/UL) 321 10E3/UL August 24, 2016 7:40pm MEAN PLATELET VOLUME(8.2-12.4 FL) 8.5 FL August 24, 2016 7:40pm 770-8: NEUTROPHILS % (AUTO)(40-70 %) 44 % August 24, 2016 7:40pm LYMPHOCYTES % (AUTO)(15-45 %) 46 % August 24, 2016 7:40pm 5905-5: MONOCYTES % (AUTO)(2-10 %) 7 % August 24, 2016 7:40pm 713-8: EOSINOPHILS % (AUTO)(0-6 %) 2 % August 24, 2016 7:40pm 706-2: BASOPHILS % (AUTO)(0-1 %) 1 % August 24, 2016 7:40pm 86121-6: IMMATURE GRANS % (AUTO)(0-0 %) 0 % August 24, 2016 7:40pm NUCLEATED RBCS (AUTO)(0-0 %) 0 % August 24, 2016 7:40pm 751-8: NEUTROPHILS # (AUTO)(2.5-7.5 10E3/UL) 2.7 10E3/UL August 24, 2016 7:40pm 28896-4: LYMPHOCYTES # (AUTO)(1.0-4.0 10E3/UL) 2.9 10E3/UL August 24, 2016 7:40pm 742-7: MONOCYTES # (AUTO)(0.2-0.8 10E3/UL) 0.5 10E3/UL August 24, 2016 7:40pm 711-2: EOSINOPHILS # (AUTO)(0.0-0.4 10E3/UL) 0.1 10E3/UL August 24, 2016 7:40pm 704-7: BASOPHILS # (AUTO)(0.0-0.2 10E3/UL) 0.1 10E3/UL August 24, 2016 7:40pm IMMATURE GRANS # (AUTO)(0.0-0.0 10E3/UL) 0.0 10E3/UL August 24, 2016 7:40pm DIFF TYPE AUTOMATED August 24, 2016 7:40pm 62787-2: COMPLETE METABOLIC PROFILE GLUCOSE(70-110 MG/DL) 98 MG/DL August 24, 2016 7:40pm BLOOD UREA NITROGEN(6-20 MG/DL) 17 MG/DL August 24, 2016 7:40pm CREATININE(0.50-1.20 MG/DL) 0.76 MG/DL August 24, 2016 7:40pm 59603-5: EST GLOMERULAR FILTRATION RATE(Greater than or equal to 60) Greater than or equal to 60 Result Comments: If the patient is of -[place] descent/extraction multiply the eGFR value by 1.212 to obtain the actual eGFR. >=60 mg/dL Normal 30-59 mg/dL Moderate Kidney Disease 15-29 mg/dL Severe Kidney Disease <15 mg/dL Kidney Failure August 24, 2016 7:40pm BUN CREATININE RATIO(10.0-20.0 RATIO) 22.0 RATIO August 24, 2016 7:40pm SODIUM(135-145 MMOL/L) 136 MMOL/L August 24, 2016 7:40pm POTASSIUM(3.6-5.0 MMOL/L) 3.8 MMOL/L August 24, 2016 7:40pm CHLORIDE(101-111 MMOL/L) 104 MMOL/L August 24, 2016 7:40pm CO2(21-31 MMOL/L) 25 MMOL/L August 24, 2016 7:40pm ANION GAP(8-18) 11 August 24, 2016 7:40pm OSMO CALCULATED(270.0-290.0) 273.5 August 24, 2016 7:40pm CALCIUM(8.5-10.5 MG/DL) 8.6 MG/DL August 24, 2016 7:40pm BILIRUBIN,TOTAL(0.1-1.2 MG/DL) 0.6 MG/DL August 24, 2016 7:40pm ALKALINE PHOSPHATASE(42-121 IU/L) 111 IU/L August 24, 2016 7:40pm ASPARTATE AMINO TRANSFERASE(10-42 IU/L) 35 IU/L August 24, 2016 7:40pm ALANINE AMINOTRANSFERASE(10-60 IU/L) 38 IU/L August 24, 2016 7:40pm TOTAL PROTEIN(6.4-8.2 G/DL) 8.0 G/DL August 24, 2016 7:40pm ALBUMIN(3.5-5.5 G/DL) 4.1 G/DL August 24, 2016 7:40pm GLOBULIN(2.4-3.6) 3.9 August 24, 2016 7:40pm ALBUMIN/GLOBULIN RATIO(0.9-1.8 RATIO) 1.1 RATIO August 24, 2016 7:40pm Allergies and Adverse Reactions Allergies and Adverse Reactions Patient Unit Number: [id number] Agent Type Reaction Severity Status ACETAMINOPHEN Drug Allergy Unknown Unknown Active Problem List Problem List Visit/Account #[id number] (August 24, 2016 7:15pm - August 24, 2016 8: 47pm) Acute Problems: Code/Condition Comments Documented Start Date Documented Resolved Date Code (s) Allergic reaction to drug ICD10: Z88.9 Allergic reaction to drug ICD9: 995.27 Allergic reaction to drug SNOMED: 924811752 Allergic reaction to drug Plan of Care Plan Of Care Visit/Account #[id number] (August 24, 2016 7:15pm - August 24, 2016 8: 47pm) Patient Instructions Take Benadryl 50 mg every 6 hours as needed for itching or swelling. Take the prednisone as previously prescribed that you have with you. Do not take any medications that you know you are allergic to. Followup with your PCP or psychiatric doctor for further recommendations in the next 24-48 hours. ER as needed. Vital Signs Vital Signs Visit/Account #[id number] (August 24, 2016 7:15pm - August 24, 2016 8: 47pm) Sign First Result Last Result Code(s) Temperature in Fahrenheit Temperature (Fahrenheit): 98.1 [degF] On August 24, 2016 7:15pm Temperature (Fahrenheit): 98.6 [degF] On August 24, 2016 8:46pm 8310-5 Body Temperature Weight in Kilograms Weight (Kilograms): 90.6 kg On August 24, 2016 7:15pm 3141-9 Weight Measured 60021-4 Body weight measured in kilograms Functional Status Functional and Cognitive Status No Functional Status Data Medications Inpatient/Ordered Medications - Medications administered during hospital visit Visit/Account #[id number] (August 24, 2016 7:15pm - August 24, 2016 8: 47pm) Medication Route Sig/Schedule Precondition/Indication Comments/Instructions Codes PEPCID INJ(FAMOTIDINE) 20 MG/2 ML INJECTION Dose: 20 MG INTRAVEN .STK-MED 2 ML Famotidine 10 MG/ML Injection (RxNorm): [id number] PEPCID INJ (FAMOTIDINE) [facility]: [id number] History Of Encounters Encounters Visit/Account #[id number] (August 24, 2016 7:15pm - August 24, 2016 8: 47pm) Account Status Physican Of Record Reason For Visit Visit Diagnosis Start Date/Time Stop Date/Time ER JACOB WEINER MD ALLERGIC REACTION T78.40XA: ALLERGY, UNSPECIFIED, INITIAL ENCOUNTER ICD10 Aug 24, 2016 7:15pm Aug 24, 2016 8:47pm History of Procedures Procedure List No procedures recorded. Discharge Instructions Discharge Instructions Visit/Account #[id number] (August 24, 2016 7:15pm - August 24, 2016 8: 47pm) DISCHARGE INSTRUCTIONS Physician Documentation Social History Social History No Social History Data. Immunizations Immunizations Patient Unit Number: [id number] Immunizations No immunizations recorded.
--- OUTSIDE RECORDS SUMMARY | 2016-10-02 20:57 | XMS REPORT | Referral Summary ---
Author Author [facility] Organization [facility] Address Unknown Phone Unavailable Care Team Providers Care Livestock Farm Manager Name Role Phone No PCP, Pt States Primary Care Physician [phone] Encounter VC Date(s): 05/25/15 - 05/25/15 [facility] [address] [place] [address] Discharge Diagnosis: Medication refill Discharge Disposition: 01-Home or Self Care Attending Physician: Young Jones MD Admitting Physician: Young Jones MD Vital Signs Most recent to 1 oldest [Reference Range]: Temperature Oral 36.5 degC [35.8-37.3 degC] (05/25/15 3:52 PM) Peripheral Pulse 99 bpm Rate [60-100 bpm] (05/25/15 3:52 PM) Respiratory Rate 16 br/min [14-20 br/min] (05/25/15 3:52 PM) Blood Pressure 143/86 mmHg [90-140/60-90 mmHg] *HI* (05/25/15 3:52 PM) SpO2 95 % (05/25/15 3:52 PM) Problem List Condition Effective Dates Status [...] Status acetaminophen1 Active 1facial redness, hives Medications Ativan 0 [...]
--- OUTSIDE RECORDS SUMMARY | 2016-10-02 20:57 | XMS REPORT | Referral Summary ---
Author Author [facility] Organization [facility] Address Unknown Phone Unavailable Care Team Providers Care Lute Packer Or Applier Name Role Phone No PCP, Pt States Primary Care Physician [phone] Encounter VC [facility] [id number] Date(s): 12/13/15 - 12/13/[address] [facility] [address] [place], [place] [address] Discharge Disposition: Without Being Seen Attending Physician: Bucky Espinosa MD Admitting Physician: Bucky Espinosa MD Vital Signs No data available for this section Problem List Condition Effective Dates Status Health [...]
[2016-10-02 21:31] VITALS: Ht 182.9 cm; Wt 86.7 kg
[2016-10-02] MEDS ORDERED: LITH150C PO (22:58)
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
[2016-10-02] MEDS ORDERED: KETOROLAC 60mg/2ml INJECTION IM ONE (23:30)
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
[2016-10-03 00:18] VITALS: BP 135/89; PULSE 79; RESP 16; TEMP 98.5; O2SAT 98
== END 2016-10-03 00:18 | disposition home or self-care (01) ==
LOC: EDSEX 20:51 → ED 20:51
DX: R51 Headache (principal); R09.81 Nasal congestion; J34.89 Other specified disorders of nose and nasal sinuses; F17.200 Nicotine dependence, unspecified, uncomplicated
CPT/HCPCS: 96372; 99283; J1885